=== PATIENT | male | born 1985 | race Caucasian/White ===

== ENCOUNTER 2018-06-20 01:54 | Emergency (ER) | payer OTHER ==
[~2018-06-20] VITALS: Ht 172.7 cm; Wt 90.7 kg
[2018-06-20 02:04] VITALS: Ht 172.7 cm; Wt 90.7 kg
[2018-06-20 02:20] VITALS: BP 120/68
== END 2018-06-20 02:20 | disposition other institution (70) ==
LOC: ED 01:54
DX: Z02.89 Encounter for other administrative examinations (principal)